=== PATIENT | female | born 1985 | race Caucasian/White ===

== ENCOUNTER 2019-02-13 08:40 | Emergency (ER) | payer MEDICAID ==
[~2019-02-13] VITALS: Ht 170.2 cm; Wt 60.8 kg
[2019-02-13 08:50] VITALS: Ht 170.2 cm; Wt 60.8 kg
[2019-02-13 09:32] LABS: microscopic required? NO
[2019-02-13 09:58] LABS: UA SPECIFIC GRAVITY 1.015 (1.005-1.035); urine erythrocyte NEGATIVE (NEGATIVE)
[2019-02-13 10:07] LABS: BASOPHIL % 0.3 % (0-2); PLATELET COUNT 240 x10^3mcL (130-400); RED CELL DISTRIBUTION WIDTH 14.3 % (11.5-14.5)
[2019-02-13 10:19] LABS: CALCIUM 9.1 mg/dL (8.5-10.1); CHLORIDE SERUM 106 mmol/L (98-107); CREATININE SERUM 0.7 mg/dL (0.6-1.0); GFR1 > 60 mL/min; GLUCOSE SERUM 101 mg/dL (74-106); POTASSIUM SERUM 4.3 mmol/L (3.5-5.1); SODIUM SERUM 140 mmol/L (136-145)
[2019-02-13 10:23] LABS: ALBUMIN 3.9 g/dL (3.4-5.0); ALKALINE PHOSPHATASE 34 U/L (46-116); ALT/SGPT 20 U/L (14-59); AST/SGOT 11 U/L (15-37); BILIRUBIN TOTAL 0.45 mg/dL (0.20-1.00); LIPASE 105 IU/L (73-393); TOTAL PROTEIN, SERUM 7.5 g/dL (6.4-8.2)
[2019-02-13 11:40] VITALS: BP 112/68
== END 2019-02-13 12:05 | disposition home or self-care (01) ==
LOC: ED 08:40
PROVIDERS: Emergency Medicine
DX: R10.31 Right lower quadrant pain (principal); F17.210 Nicotine dependence, cigarettes, uncomplicated; Z98.890 Other specified postprocedural states
CPT/HCPCS: 99406; J3010; J7030; Q9967